=== PATIENT | male | born 1975 | race Asian ===

== ENCOUNTER 2020-05-24 06:41 | Emergency (ER) | payer BC, OTHER ==
[~2020-05-24] VITALS: Ht 167.6 cm; Wt 81.6 kg
--- NOTE | 2020-05-24 06:57 | NUR ---
PATIENT CAME TO ER BED 1 C/O LEFT LATERAL HIP PAIN RADIATING TO THE LEFT THIGH SINCE THURSDAY NIGHT. PATIENT STATES THAT HE TOOK SOMA AT 0500 AND FLEXERIL AT 0600 OF TODAY. PATIENT WALKS WITH A LIMP. PATIENT STATES THAT PAIN IS PROVOKED WHEN SITTING. AAOX4. NO SOB. BREATHING EVENLY AND UNLABORED ON ROOM AIR. CONNECTED TO MONITOR.
--- NOTE | 2020-05-24 07:27 | NUR ---
REPORT GIVEN TO ABRAM DELUCA FOR RICK.
[2020-05-24] MEDS ORDERED: HYDROCODONE/APAP 10/325MG TABLET ONE (08:47)
[2020-05-24 08:54] VITALS: BP 145/81
--- NOTE | 2020-05-24 08:55 | NUR ---
davi at bedside for x-ray
[2020-05-24] MEDS ORDERED: HYDROCODONE/APAP 10/325MG TABLET PO ONE (09:00)
== END 2020-05-24 09:44 | disposition home or self-care (01) ==
LOC: ER 06:41
DX: M25.552 Pain in left hip (principal); M54.32 Sciatica, left side
CPT/HCPCS: 73502